=== PATIENT | female | born 1985 | race Hispanic/Latino ===

== ENCOUNTER 2020-08-02 05:00 | Emergency (ER) | payer SELFPAY ==
[2020-08-02] MEDS ORDERED: Dexamethasone 10 MG/ML VIAL ONE (05:19)
== END 2020-08-02 05:38 | disposition home or self-care (01) ==
LOC: ERS 05:00
DX: J02.9 Acute pharyngitis, unspecified (principal)
CPT/HCPCS: 96372; 99283; J1100

== ENCOUNTER 2021-07-03 00:40 | Emergency (ER) | payer SELFPAY ==
[2021-07-03] MEDS ORDERED: Ondansetron ODT 4 MG TAB ONE (00:57)
[2021-07-03] MEDS ORDERED: Acetaminophen 500 MG TAB ONE (01:56)
== END 2021-07-03 01:51 | disposition home or self-care (01) ==
LOC: ERS 00:40
DX: U07.1 COVID-19 (principal)
CPT/HCPCS: 71045; 93005; Q0162

== ENCOUNTER 2021-07-05 01:05 | Emergency (ER) | payer SELFPAY ==
[2021-07-05] MEDS ORDERED: guaiFENesin/Codeine 200 mg/20 mg 10 ml Cup PO SCH (01:45)
== END 2021-07-05 03:20 | disposition home or self-care (01) ==
LOC: ERS 01:05
DX: U07.1 COVID-19 (principal); J12.82 Pneumonia due to coronavirus disease 2019
CPT/HCPCS: 71045